=== PATIENT | male | born 1945 | race Caucasian/White ===

== ENCOUNTER 2024-05-06 13:21 | Day surgery (SDC) | payer MEDICARE ==
[~2024-05-06] VITALS: Ht 180.3 cm; Wt 95.3 kg
[~2024-05-06 13:21] MED LIST: FLUO-290 PO; ROSU20TA61 PO
[2024-05-06] MEDS ORDERED: propofoL 200 MG/20 ML VIAL As Ordered ONE (13:24)
[2024-05-06] MEDS ORDERED: LIDOCAINE 2% 100MG/5ML SDV (FOR ANES.) As Ordered ONE (13:25)
[2024-05-06] MEDS: NS 1,000 ML IV SCH (13:50)
[2024-05-06] MEDS ORDERED: fentaNYL 100 MCG/2 ML INJECTION As Ordered ONE (13:59)
[2024-05-06 15:44] VITALS: TEMP 97.8
[2024-05-06 16:00] VITALS: BP 125/67; O2SAT 96
== END 2024-05-06 16:05 | disposition home or self-care (01) ==
LOC: M OPP 13:21
PROVIDERS: ATTEND Internal Medicine Gastroenterology
DX: K29.70 Gastritis, unspecified, without bleeding (principal); K22.89 Other specified disease of esophagus; K31.A0 Gastric intestinal metaplasia, unspecified; R13.10 Dysphagia, unspecified; Z79.02 Long term (current) use of antithrombotics/antiplatelets; Z79.899 Other long term (current) drug therapy
CPT/HCPCS: 43239; 88305; J3010